=== PATIENT | male | born 1945 | race Caucasian/White ===

== ENCOUNTER → 2017-04-14 | Outpatient (CLI) | payer OTHER, BC | LOC: MMPC 10:00 | PROVIDERS: ATTEND Orthopaedic Surgery | DX: M17.12 Unilateral primary osteoarthritis, left knee (principal) | CPT/HCPCS: 20610 ×2; 99214; G0463; J0702 ==

== ENCOUNTER → 2017-05-17 | Outpatient (CLI) | payer OTHER, BC ==
--- NOTE | 2017-05-17 21:58 | DI ---
MRI LEFT KNEE SCAN, 05/17/2017 11:02 AM: Clinical History: Left knee arthritis. Previous Exam: None at this facility. Technique: Axial, coronal, and sagittal PD and fat saturated PD; axial T1 weighted. There is no soft tissue edema. 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 No abnormal bone signal pa ttern is present. There are chronic partial tears of the anterior margin of the medial collateral lig ament, the medial patellofemoral ligament, the medial retinaculum, and the meniscofemoral and menisco tibial ligaments. A chronic partial tear is also present at the insertion of the lateral collateral l igament in the lateral femoral condyle and of the medial limb of the arcuate ligament. Chronic partia l tears are evident in the anterior aspect of the anterior cruciate ligament in the superior half of the posterior cruciate ligament. There is a flap tear in the posterior horn of the medial meniscus on the undersurface. 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 There is a flap tear that exits on the undersurface of the body of the late ral meniscus and this extends into the anterior horn. There is mild tendinosis in the proximal portio n of the patellar tendon. A partial tear is evident in the popliteus tendon near the attachment to th e lateral femoral condyle. The quadriceps tendon and the tendons of the medial and lateral heads of t he gastrocnemius muscle are normal. 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 The articular surfaces of the pa tellofemoral and lateral compartments are intact. Readin. Chronic partial tears are present in the MCL and the medial patellofemoral ligament and the media l retinaculum, as well as in the meniscofemoral and meniscotibial ligaments and the superior margin o f the LCL and medial limb of the arcuate ligament. Chronic partial tears are also evident in the ACL and PCL. 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 There is a flap tear on the undersur face of the body of the lateral meniscus that extends into the anterior horn. Mild tendinosis of the proximal portion of the patellar tendon is noted. 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 A grade 2 and probably a grade 3 cho ndromalacia is noted in the medial tibial plateau in the posteromedial aspect. 2. The quadriceps tendon and the tendons of the medial and lateral heads of the gastrocnemius muscle and the articular surfaces of the lateral and patellofemoral compartments are normal.
== END ==
LOC: MRI 10:55
PROVIDERS: ATTEND Orthopaedic Surgery
DX: M17.12 Unilateral primary osteoarthritis, left knee (principal); S83.412A Sprain of medial collateral ligament of left knee, initial encounter; S83.512A Sprain of anterior cruciate ligament of left knee, initial encounter; S83.522A Sprain of posterior cruciate ligament of left knee, initial encounter; M23.222 Derangement of posterior horn of medial meniscus due to old tear or injury, left knee; M94.262 Chondromalacia, left knee
CPT/HCPCS: 73721

== ENCOUNTER → 2017-05-26 | Outpatient (CLI) | payer OTHER, BC ==
--- NOTE | 2017-05-26 11:21 | EKG ---
[address] [address] Measurements Intervals [place] Rate: 60 P: 54 MS: 153 QRS: 58 QRSD: 93 T: 47 QT: 400 QTc: 400 Interpretive Statements SINUS RHYTHM No previous ECG available for comparison Electronically Signed On 05-27-17 16:26:18 MDT by Naseem Garcia [id number]
[2017-05-26 12:11] LABS: CALCIUM 9.6 mg/dL (8.7-10.7)
== END ==
LOC: LAB 10:48
PROVIDERS: ATTEND Orthopaedic Surgery
DX: R54 Age-related physical debility (principal); S83.32XD Tear of articular cartilage of left knee, current, subsequent encounter; F17.200 Nicotine dependence, unspecified, uncomplicated
CPT/HCPCS: 36415; 80048; 93005; 93010

== ENCOUNTER 2017-05-30 09:14 | Day surgery (SDC) | payer OTHER, BC ==
[~2017-05-30 09:14] MED LIST: Lactated Ringers 1,000 ML PRIMARY IV ONE; ceFAZolin Inj 2gm (Premix) 50 ML IV ONE
[2017-05-30] MEDS: LIDOCAINE W/ SODIUM BICARB 0.5 ML SYR ONE (09:48)
[2017-05-30] MEDS ORDERED: fentaNYL Inj 250 MCG/5 ML VIAL ONE (10:14)
[2017-05-30] MEDS ORDERED: LIDOCAINE MPF 2% - 5 ML (20 MG/1 ML) ONE (10:48)
[2017-05-30] MEDS ORDERED: MIDAZOLAM 5 MG/1 ML ONE (10:48)
[2017-05-30] MEDS ORDERED: Ropivacaine 0.2% VIAL 20 ML ONE (10:56)
[2017-05-30] MEDS ORDERED: EPINEPHrine Inj (1:1,000) 30mg/30ml vial ONE (10:56)
[2017-05-30] MEDS ORDERED: BETAMET ACET/BETAMET NA PH 6 MG/1 ML - 5 ML ONE (10:57)
[2017-05-30] MEDS ORDERED: KETAMINE 100 MG/1 ML - 5 ML ONE (11:31)
[2017-05-30] MEDS ORDERED: ONDANSETRON 4 MG/2 ML VIAL ONE (11:31)
[2017-05-30] MEDS ORDERED: KETOROLAC 30 MG/1 ML VIAL ONE (11:31)
[2017-05-30] MEDS ORDERED: ePHEDrine Inj 50 MG/ML AMP ONE (11:41)
[2017-05-30] MEDS ORDERED: Lactated Ringers 1,000 ML PRIMARY IV ONE (12:10)
[2017-05-30] MEDS ORDERED: ONDANSETRON 4 MG/2 ML VIAL IVP PRN (12:48)
[2017-05-30] MEDS ORDERED: Prochlorperazine Tab 10 MG TAB PO PRN (12:48)
[2017-05-30] MEDS ORDERED: MAG HYDROX/AL HYDROX/SIMETH 30 ML SUSP PO PRN (12:48)
[2017-05-30] MEDS ORDERED: IBUPROFEN 400 MG TABLET PO PRN (12:48)
[2017-05-30] MEDS ORDERED: NORMAL SALINE 10 ML SYRINGE FLUSH IVP PRN (12:48)
[2017-05-30] MEDS ORDERED: diphenhydrAMINE 25 MG CAPSULE PO PRN (12:48)
[2017-05-30] MEDS ORDERED: BISACODYL 10 MG SUPPOSITORY RECTAL PRN (12:48)
[2017-05-30] MEDS ORDERED: HYDROcodone-APAP 7.5 MG-325 MG TABLET PO PRN (12:48)
[2017-05-30] MEDS ORDERED: BISACODYL 5 MG TABLET PO PRN (12:48)
[2017-05-30] MEDS ORDERED: ACETAMINOPHEN 325 MG TABLET PO PRN (12:48)
[2017-05-30] MEDS ORDERED: CALCIUM CARBONATE 500 MG (TUMS) CHEWABLE TABLET PO PRN (12:48)
[2017-05-30] MEDS ORDERED: HYDROmorphone 2 MG/1 ML IVP PRN (12:48)
[2017-05-30] MEDS ORDERED: Ondansetron ODT Tab 8 MG TAB PO PRN (12:48)
[2017-05-30] MEDS ORDERED: Lactated Ringers 1,000 ML PRIMARY IV SCH (13:00)
[2017-05-30 13:23] VITALS: RESP 14
[2017-05-30] MEDS ORDERED: HYDROcodone-APAP 7.5 MG-325 MG TABLET PO ONE (13:28)
[2017-05-30 15:29] VITALS: TEMP 97.5
--- NOTE | 2017-05-31 12:04 | OPS CRUTCH ---
Diagnosis : Left Knee Scope Referral Reason: Gait Training/Knee Cryo Cuff S: The patient states he has three stairs to get into his house and has never used crutches. O: The patient was instructed in the use of crutches with gait belt, both on level surfaces and up and down stairs. The patient was also issued a Cryo- Cuff and instructed in its proper use and care. A: The patient required verbal cues to use the crutches properly; however, once he figured them out he tolerated training very well. P: No further therapy is indicated at this time. MTDD
== END 2017-05-30 14:45 | disposition home or self-care (01) ==
LOC: SDSC 09:14
PROVIDERS: ATTEND Orthopaedic Surgery
DX: M23.001 Cystic meniscus, unspecified lateral meniscus, left knee (principal); S83.92XA Sprain of unspecified site of left knee, initial encounter
CPT/HCPCS: 29876; 29880 ×2; 97116; J0171; J0690; J0702; J1885; J2001; J2250; J2405; J2704; J2795; J3010; J7120